=== PATIENT | female | born 1995 | race Caucasian/White ===

== ENCOUNTER 2018-08-20 16:01 | Emergency (ER) | payer OTHER ==
--- NOTE | 2018-08-20 16:09 | PDOC ---
Rapid Medical Evaluation Chief Complaint: Cold Symptoms Time Seen by Provider: 08/20/18 16:07 Medical Evaluation: Allergies Allergy/AdvReac Type Severity Reaction Status Date / Time No Known Allergies Allergy Verified 08/20/18 16:06 08/20/18 16:07 I performed a brief in-person evaluation of this patient. Chief complaint: Nasal congestion, sinus pressure Pertinent physical exam findings: Frontal sinus tenderness, afebrile I have ordered the following: Pgu Patient will proceed to ED for further evaluation. Discharge Disposition - Diagnosis Sinus congestion - Referrals - Patient Instructions - Post Discharge Activity
[2018-08-20 16:20] VITALS: BP 119/73; PULSE 94; TEMP 97.4; BMI 19.3
--- NOTE | 2018-08-20 16:58 | PDOC ---
History of Present Illness - General Chief Complaint: Cold Symptoms Stated Complaint: SINUS PROBLEM Time Seen by Provider: 08/20/18 16:07 History Source: Patient Exam Limitations: No Limitations - History of Present Illness Initial Comments: 08/20/18 16:55 Came for evaluation onset of fevers, severe frontal headache pain worse on the left than the right and thick green sinus drainage. States has had a cold for the past week but yesterday turned worse where had significant headache pain and congestion Timing/Duration: reports: getting worse Severity: reports: moderate Associated Symptoms: reports: facial pain, fever/chills, nasal congestion, nasal drainage Past History - Travel Traveled outside of the country in the last 30 days: No Close contact w/someone who was outside of country & ill: No - Past Medical History Allergies/Adverse Reactions: Allergies Allergy/AdvReac Type Severity Reaction Status Date / Time No Known Allergies Allergy Verified 08/20/18 16:06 Home Medications: Ambulatory Orders Amox-Tr/K Cl [Augmentin 875Mg Tablet] 1 tab PO BID #20 tablet 08/20/18 COPD: No - Immunization History Immunization Up to Date: Yes - Suicide/Smoking/Psychosocial Hx Smoking History: Never smoked Hx Alcohol Use: No Drug/Substance Use Hx: No Review of Systems - Review of Systems Able to Perform ROS?: Yes Is the patient limited Lithuanian proficient: Yes Constitutional: Yes: Symptoms Reported, See HPI, Fever, Malaise HEENTM: Yes: Symptoms Reported, See HPI, Nose Congestion, Throat Swelling (with psot nasal drainage ) Respiratory: Yes: See HPI. No: Symptoms reported, Cough Integumentary: Yes: Symptoms Reported Neurological: Yes: Symptoms reported, See HPI, Headache (frontal ) All Other Systems: Reviewed and Negative *Physical Exam - Vital Signs Last Vital Signs Temp Pulse Resp BP Pulse Ox 97.4 F L 94 H 16 119/73 97 08/20/18 16:06 08/20/18 16:06 08/20/18 16:06 08/20/18 16:06 08/20/18 16:06 - Physical Exam General Appearance: Yes: Nourished, Appropriately Dressed, Apparent Distress, Mild Distress HEENT: positive: MICHAEL, TMs Normal (congested bilaterally but landmarks easily visualized), Nasal Congestion (thick yellow-green drainage), Rhinorrhea, Sinus Tenderness (drainage noted in posterior pharynx worse on the left than the right ). negative: Pharyngeal Erythema Neck: positive: Supple, Lymphadenopathy (R), Lymphadenopathy (L) Respiratory/Chest: positive: Lungs Clear, Normal Breath Sounds Gastrointestinal/Abdominal: positive: Soft. negative: Tender Musculoskeletal: positive: Normal Inspection Extremity: positive: Normal Inspection, Normal Range of Motion Integumentary: positive: Dry, Warm, Pale Neurologic: positive: telecommunications repairer II-XII NML intact, Fully Oriented, Alert, Normal Mood/ Affect, Normal Response, Motor Strength 09/05 Progress Note - Progress Note Progress Note: Sinusitis, will treat with Augmentin *DC/Admit/Observation/Transfer Diagnosis at time of Disposition: Sinusitis Qualifiers: Sinusitis location: unspecified location Chronicity: acute Recurrence: not specified as recurrent Qualified Code(s): J01.90 - Acute sinusitis, unspecified - Discharge Dispostion Disposition: HOME Condition at time of disposition: Stable Decision to Admit order: No - Prescriptions Prescriptions: Amox-Tr/K Cl [Augmentin 875Mg Tablet] 1 tab PO BID #20 tablet - Referrals Referrals: Stephanie Alvarenga MD [Primary Care Provider] - - Patient Instructions Printed Discharge Instructions: DI for Sinusitis Additional Instructions: Rest, drink lots of fluids: Teas, water, soups, Pedialyte Saltwater gargles Steamy showers/seem to face break up mucus Avoid contact with others until fevers and cough resolved Lots of handwashing and good hygiene Continue [id number] medications for symptomatic relief Tylenol or Motrin for fever and pain Augmentin 875 mg tablet every 12 hours for 10 days Followup with private physician in one to 2 days as needed Return to emergency department for worsened symptoms, fevers, dehydration - Post Discharge Activity Forms/Work/School Notes: Back to Work
== END 2018-08-20 16:59 | disposition home or self-care (01) ==
LOC: JERFT 16:01
DX: J01.90 Acute sinusitis, unspecified (principal)
CPT/HCPCS: 99281-25